=== PATIENT | female | born 1960 | race Hispanic/Latino ===

== ENCOUNTER 2020-05-21 12:57 | Outpatient (RCR) | payer OTHER | END 2020-06-02 | LOC: PT 12:57 | PROVIDERS: ATTEND Specialist | DX: M16.0 Bilateral primary osteoarthritis of hip (principal); M70.62 Trochanteric bursitis, left hip; M54.16 Radiculopathy, lumbar region ==

== ENCOUNTER → 2020-06-23 | Day surgery (SDC) | payer OTHER ==
[2020-06-19 15:43] LABS: ANION GAP 12.4 mmol/L (8-16); BLOOD UREA NITROGEN 15 mg/dL (7-26); BUN/CREATININE RATIO 19 (6-25); CARBON DIOXIDE 23 mmol/L (22-29); CHLORIDE 105 mmol/L (98-107); CREATININE, SERUM 0.81 mg/dL (0.57-1.11); EST GLOMERULAR FILTRATION RATE > 60 ML/MIN (60-); GLUCOSE 311 mg/dL (74-118); POTASSIUM 4.4 mmol/L (3.5-5.1); SODIUM 136 mmol/L (136-145)
[~2020-06-23] MED LIST: ASPIRIN81 MG PO; BUPIVACAINE HCL 0.5% INJ 30 ML VIAL INJ ONE; FARXIGA10 MG PO; FENTANYL CITRATE/PF 100MCG/2 ML INJ ONE; GLIMEPIRIDE2 MG PO; IOPAMIDOL 300MG/ML 50ML INFUS..BTL IV ONE; LIDOCAINE HCL 1% LOCAL INJ 20 ML VIAL ONE; METFORMIN HCL500 MG PO; MIDAZOLAM HCL 2 MG/2 ML VIAL ONE; PROPOFOL IV EMULSION 10 MG/ML 20 ML VIAL ONE; TRESIBA FL200 UNIT/1 SC/PO; TRIAMCINOLONE ACET 40 MG/ML VIAL ONE
[2020-06-23 07:35] VITALS: BP 118/73
--- NOTE | 2020-06-23 08:13 | Operative Report ---
DATE OF PROCEDURE: 06/23/2020 SURGEON: Luca Rosenthal MD PREOPERATIVE DIAGNOSIS: Osteoarthritis, left hip. POSTOPERATIVE DIAGNOSIS: Osteoarthritis, left hip. PROCEDURE: Left hip fluoroscopic-guided corticosteroid injection. 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 The findings and options have been discussed. Given her age and the overlapping symptoms, we have recommended a diagnostic injection in the left hip. The risks and benefits were explained. She stated she understood and wished to proceed. PROCEDURE IN DETAIL: The patient was brought to the operating room. She was given a MAC anesthetic. Her left hip was prepped and draped in a sterile manner. A preoperative time-out was performed. A C-arm image intensifier was used to assist in placing an 18-gauge spinal needle into the inferior recess of the left hip. A small amount of radiopaque dye was used to confirm intra-articular placement. Once this was confirmed, a mixture of 10 mL of 0.5% Marcaine and 40 mg of Kenalog was injected into the hip. Dilution of the intra-articular dye was noted. The needle was retrieved and a Band-Aid was applied. The patient was transported to the recovery room in stable condition. There was no blood loss. Luca Rosenthal MD DR/ANGIE /[id number]
== END | disposition home or self-care (01) ==
LOC: OR 05:27
PROVIDERS: ATTEND Specialist
DX: M16.12 Unilateral primary osteoarthritis, left hip (principal); M47.816 Spondylosis without myelopathy or radiculopathy, lumbar region; E11.9 Type 2 diabetes mellitus without complications; F32.9 Major depressive disorder, single episode, unspecified; Z01.810 Encounter for preprocedural cardiovascular examination; Z01.812 Encounter for preprocedural laboratory examination; Z11.59 Encounter for screening for other viral diseases
CPT/HCPCS: 20610; 36415 ×2; 77002; 80048; 82948; 93005; J2250; J2704; J3010; J3301; Q9967; U0002; J2001

== ENCOUNTER 2020-07-31 12:52 | Outpatient (RCR) | payer OTHER ==
[~2020-07-31 12:52] MED LIST changes: -BUPIVACAINE HCL 0.5% INJ 30 ML VIAL INJ ONE; -FENTANYL CITRATE/PF 100MCG/2 ML INJ ONE; -IOPAMIDOL 300MG/ML 50ML INFUS..BTL IV ONE; -LIDOCAINE HCL 1% LOCAL INJ 20 ML VIAL ONE; -MIDAZOLAM HCL 2 MG/2 ML VIAL ONE; -PROPOFOL IV EMULSION 10 MG/ML 20 ML VIAL ONE; -TRIAMCINOLONE ACET 40 MG/ML VIAL ONE
== END 2020-08-02 ==
LOC: PT 12:52
PROVIDERS: ATTEND Specialist
DX: M16.0 Bilateral primary osteoarthritis of hip (principal); M54.16 Radiculopathy, lumbar region; Z11.59 Encounter for screening for other viral diseases
CPT/HCPCS: 97139

== ENCOUNTER 2020-08-12 11:00 | Outpatient (RCR) | payer OTHER | END 2020-09-01 | LOC: PT 11:00 | PROVIDERS: ATTEND Specialist | DX: M16.0 Bilateral primary osteoarthritis of hip (principal); M54.16 Radiculopathy, lumbar region ==

== ENCOUNTER 2020-09-29 10:58 | Outpatient (RCR) | payer OTHER | END 2020-10-02 | LOC: PT 10:58 | PROVIDERS: ATTEND Neurological Surgery | DX: M51.17 Intervertebral disc disorders with radiculopathy, lumbosacral region (principal) | CPT/HCPCS: 97139 ==

== ENCOUNTER 2020-10-29 09:00 | Outpatient (RCR) | payer OTHER | END 2020-11-02 | LOC: PT 09:00 | PROVIDERS: ATTEND Neurological Surgery | DX: M51.17 Intervertebral disc disorders with radiculopathy, lumbosacral region (principal) | CPT/HCPCS: 97139 ==

== ENCOUNTER 2020-11-28 10:00 | Outpatient (RCR) | payer OTHER | END 2020-11-30 | LOC: PT 10:00 | PROVIDERS: ATTEND Neurological Surgery | DX: M51.17 Intervertebral disc disorders with radiculopathy, lumbosacral region (principal); M62.81 Muscle weakness (generalized) ==

== ENCOUNTER 2020-12-19 07:00 | Outpatient (RCR) | payer OTHER | END 2020-12-31 | LOC: PT 07:00 | PROVIDERS: ATTEND Neurological Surgery | DX: M51.17 Intervertebral disc disorders with radiculopathy, lumbosacral region (principal) | CPT/HCPCS: 97139 ==

== ENCOUNTER → 2025-04-01 | Day surgery (SDC) | payer OTHER ==
[~2025-04-01] MED LIST changes: +ACETAMINOPHEN 1000 MG/100 ML 100 ML IV ONE; +ACETAMINOPHEN 1000 MG/100 ML IV PRN; +ASPIRIN 325 MG TAB PO SCH; +CELECOXIB 100 MG CAP PO SCH; +DIPHENHYDRAMINE HCL INJ 50 MG/ML VIAL IV PRN; +DOCUSATE SODIUM 100 MG CAP PO PRN; +FENTANYL CITRATE/PF 100MCG/2 ML INJ ONE; +HUMALOG100 UNIT/3 SC; +HYDROCODONE/APAP 5MG-325MG TAB PO PRN; +HYDROCODONE/APAP 7.5MG-325MG 1 EA TAB PO PRN; +HYDROMORPHONE 2MG/ML ONE; +JANUVIA100 MG PO; +LIDOCAINE HCL 2% LOCAL INJ 5 ML SDV VIAL INJ ONE; +METOCLOPRAMIDE HCL 10 MG/2ML VIAL ONE; +MIDAZOLAM HCL 2 MG/2 ML VIAL ONE; +NAPROXEN250 MG PO; +ONDANSETRON HCL INJ 2MG/ML 2ML 2 MG/ML VIAL IV PRN; +ONDANSETRON HCL INJ 2MG/ML 2ML 2 MG/ML VIAL ONE; +PANTOPRAZOLE SO40 MG PO; +PROPOFOL IV EMULSION 10 MG/ML 20 ML VIAL ONE; +ROPIVACAINE/EPI/CLONIDINE/KET 50 ML SYRINGE INJ ONE; +SODIUM CHLORIDE 0.9% 1000ML 1,000 ML IV SCH; +ZESTRIL2.5 MG PO
[2025-04-01] MEDS: CEFAZOLIN SODIUM 2 GM ONE (06:15)
[2025-04-01] MEDS: GABAPENTIN 300 MG CAP ONE (06:16)
[2025-04-01] MEDS: DEXAMETHASONE SOD PHOS 10 MG/1 ML VIAL ONE (06:16)
[2025-04-01] MEDS: CELECOXIB 200 MG CAP ONE (06:16)
[2025-04-01] MEDS: LACTATED RINGER'S 1,000 ML ONE (06:16)
[2025-04-01 08:53] VITALS: TEMP 98.1
[2025-04-01] MEDS: ONDANSETRON HCL INJ 2MG/ML 2ML 2 MG/ML VIAL ONE (11:02)
[2025-04-01] MEDS: SCOPOLAMINE 1 MG PATCH ONE (11:30)
[2025-04-01 12:00] VITALS: BP 142/70; PULSE 81; RESP 16; O2SAT 97
== END | disposition home health service (06) ==
LOC: OR 05:33
PROVIDERS: ATTEND Specialist
DX: M17.11 Unilateral primary osteoarthritis, right knee (principal); I10 Essential (primary) hypertension; E11.9 Type 2 diabetes mellitus without complications; Z79.4 Long term (current) use of insulin; Z79.84 Long term (current) use of oral hypoglycemic drugs; K21.9 Gastro-esophageal reflux disease without esophagitis; Z01.810 Encounter for preprocedural cardiovascular examination; Z01.812 Encounter for preprocedural laboratory examination; Z79.899 Other long term (current) drug therapy; Z79.82 Long term (current) use of aspirin
CPT/HCPCS: 36415; 82948; 86850; 86900; 93005; C1713; C1776; J0690; J1100; J1171; J2003; J2250; J2405; J2765

== ENCOUNTER 2025-05-28 08:58 | Outpatient (RCR) | payer OTHER ==
[~2025-05-28 08:58] MED LIST changes: -ACETAMINOPHEN 1000 MG/100 ML 100 ML IV ONE; -ACETAMINOPHEN 1000 MG/100 ML IV PRN; -ASPIRIN 325 MG TAB PO SCH; -CELECOXIB 100 MG CAP PO SCH; -DIPHENHYDRAMINE HCL INJ 50 MG/ML VIAL IV PRN; -DOCUSATE SODIUM 100 MG CAP PO PRN; -FENTANYL CITRATE/PF 100MCG/2 ML INJ ONE; -HYDROCODONE/APAP 5MG-325MG TAB PO PRN; -HYDROCODONE/APAP 7.5MG-325MG 1 EA TAB PO PRN; -HYDROMORPHONE 2MG/ML ONE; -LIDOCAINE HCL 2% LOCAL INJ 5 ML SDV VIAL INJ ONE; -METOCLOPRAMIDE HCL 10 MG/2ML VIAL ONE; -MIDAZOLAM HCL 2 MG/2 ML VIAL ONE; -ONDANSETRON HCL INJ 2MG/ML 2ML 2 MG/ML VIAL IV PRN; -ONDANSETRON HCL INJ 2MG/ML 2ML 2 MG/ML VIAL ONE; -PROPOFOL IV EMULSION 10 MG/ML 20 ML VIAL ONE; -ROPIVACAINE/EPI/CLONIDINE/KET 50 ML SYRINGE INJ ONE; -SODIUM CHLORIDE 0.9% 1000ML 1,000 ML IV SCH
== END 2025-06-02 ==
LOC: PT 08:58
PROVIDERS: ATTEND Specialist
DX: Z47.1 Aftercare following joint replacement surgery (principal); Z96.651 Presence of right artificial knee joint

== ENCOUNTER 2025-07-01 09:00 | Outpatient (RCR) | payer OTHER | END 2025-07-02 | LOC: PT 09:00 | PROVIDERS: ATTEND Specialist | DX: Z47.1 Aftercare following joint replacement surgery (principal); Z96.651 Presence of right artificial knee joint ==